=== PATIENT | female | born 1955 | race Caucasian/White ===

== ENCOUNTER 2017-08-04 09:13 | Inpatient (IN) | payer BC, OTHER ==
[~2017-08-04] VITALS: Ht 162.6 cm; Wt 60.9 kg
[2017-08-04 09:40] VITALS: BP 114/54; PULSE 74; TEMP 36.7; O2SAT 97; Ht 162.6 cm; Wt 60.9 kg
[2017-08-04] MEDS ORDERED: TOCI20IN SQ (09:44)
[2017-08-04] MEDS ORDERED: METH2.5T PO (09:46)
[2017-08-04] MEDS ORDERED: LEVO88TA3 PO (09:55)
[2017-08-04] MEDS ORDERED: FOLI1TAB8 PO (09:55)
[2017-08-04] MEDS ORDERED: MULT1CHW39 OR (09:55)
[2017-08-04] MEDS ORDERED: CALC500C70 PO (09:55)
[2017-08-04] MEDS ORDERED: HYDROmorphone INJ 2 MG/ML SYR/VIAL IV PRN (10:00)
[2017-08-04] MEDS ORDERED: HYDR-5688 PO (10:00)
[2017-08-04] MEDS ORDERED: METOCLOPRAMIDE HCL INJ 5 MG/ML 2 ML VIAL IV PRN (10:00)
[2017-08-04] MEDS ORDERED: CEFAZOLIN 1000MG IV PUSH 7.5 ML IV SCH (10:00)
[2017-08-04] MEDS ORDERED: ONDANSETRON INJ 2 MG/ML 2 ML VIAL IV PRN (10:00)
[2017-08-04] MEDS ORDERED: ACETAMINOPHEN 325 MG TAB PO PRN (10:00)
[2017-08-04 10:27] LABS: HEMATOCRIT 38.3 % (37-47); HEMOGLOBIN 13.6 g/dL (12.0-16.0); MEAN CELL VOLUME 91.6 fL (80-100); MEAN CORPUSCULAR HEMOGLOBIN 32.5 pg (25-34); MEAN CORPUSCULAR HGB CONC 35.5 g/dl (32-36); MEAN PLATELET VOLUME 10.1 fL (7.4-10.4); PLATELET COUNT 143 K/uL (130-400); RED CELL DISTRIBUTION WIDTH CV 13.9 % (11.5-14.5); RED CELL DISTRIBUTION WIDTH SD 45.2 fL (36.4-46.3); WHITE BLOOD COUNT 5.62 K/uL (4.8-10.8)
--- NOTE | 2017-08-04 10:39 | DIAGNOSTIC IMAGING REPORT ---
R UPPER EXTREMITY WITHOUT CLINICAL HISTORY: 61 years-old Female presenting with R proximal humerus fracture. TECHNIQUE: Multidetector CT of the right shoulder was performed without the use of intravenous contrast. 3-D volumetric and/or maximum intensity projection (MIP) images were subsequently reconstructed for review. IV contrast: None. A dose lowering technique was used consistent with the principles of ALARA (as low as reasonably achievable). COMPARISON: None. CT DOSE (mGy.cm): The estimated cumulative dose is 719.04 mGy.cm. FINDINGS: Communications Advisor topogram: Right humeral neck fracture. Transversely oriented fracture across the surgical neck of the right humerus with impaction of the distal fracture fragment onto the humeral head. There is suggestion of callus formation along the medial aspect of the distal fracture fragment with incomplete bridging to the bony glenoid (series 202 image 28). This suggests a subacute fracture. A tiny cortical fragments may be present in the fracture plane anteriorly (series 202 image 21). Additionally, prominent triangular fracture fragment arising from the anterior humeral metaphysis with cortical offset at the distal fracture fragment and interposition in the fracture plane anteriorly best seen on sagittal reformats (series 203 image 23). The humeral head remains congruent with the glenoid. There is apex anterior angulation at the fracture site. There is also approximately one half shaft width medial displacement of the distal fracture fragment. IMPRESSION: Impacted, mildly angulated and mildly displaced fracture of the surgical neck of the right humerus. Comminution with interposition of fracture fragments and the fracture plane. The fracture appears subacute given incomplete osseous. bridging. Electronically signed by: Bandar Hester M.D. 08/04/2017 10:38 AM Dictated Date/Time: 08/04/2017 10:32 AM
[2017-08-04 10:46] LABS: CALCIUM 8.5 mg/dl (8.5-10.1); CREATININE 0.89 mg/dl (0.60-1.20); POTASSIUM 3.8 mmol/L (3.5-5.1)
--- NOTE | 2017-08-04 11:55 | Anesthesiology Progress Note ---
Pre-OP Anesthesia Assessment Date of Note Aug 04, 2017. Review patient information reviewed, chart reviewed, labs reviewed, acceptable for surgery Notes 61 yo female admitted with right shoulder injury. Scheduled for right shoulder arthroplasty. PMH significant for rheumatoid arthritis. Pt has had GA in the past without complications. GETA with right interscalene block was recommended , described to pt. She expressed understanding and signed informed consent. Advised pt NPO after midnight except may have meds with sips of water.
[2017-08-04 15:10] VITALS: BP 135/78; PULSE 74; TEMP 36.7; O2SAT 98
--- NOTE | 2017-08-04 15:48 | HISTORY & PHYSICAL EXAMINATION ---
DATE OF ADMISSION: 08/04/2017 HISTORY AND PHYSICAL ADMISSION NOTE CHIEF COMPLAINT: Right proximal humerus fracture. HISTORY OF PRESENT ILLNESS: Makenna is a pleasant 61-year-old female who slipped and fell down a wet grassy hill yesterday sustaining a right proximal humerus fracture. She was placed in an arm sling and she went to [facility] where x-rays confirmed a fracture, then was placed in an arm sling. She was sent home and called my office for treatment. I did get the CD x-rays which showed a displaced fracture and I had her come down to [facility] for direct admit for definitive fixation tomorrow. PAST MEDICAL HISTORY: Significant for rheumatoid arthritis. PAST SURGICAL HISTORY: Significant for cholecystectomy, thyroidectomy and a capsular release of the right shoulder. MEDICATIONS: Include methotrexate 15 mg once a week, Actemra 162 mg subQ every other week, multivitamin, and Synthroid 88 mcg daily. ALLERGIES: None. SOCIAL HISTORY: She denies any tobacco, alcohol or IV drug use. She lives with her up in the [place] area. 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 FAMILY HISTORY: Noncontributory. REVIEW OF SYSTEMS: She complains of right shoulder pain. All other pertinent review of systems is negative. PHYSICAL EXAMINATION: GENERAL: She is awake, alert and orient x3. She is in no apparent distress. She is very pleasant. HEENT: Pupils equal, round, reactive to light. Extraocular motors intact. Oral mucosa is pink and moist. HEART: Regular rate per radial pulse. LUNGS: Mala symmetrically bilaterally with no audible breath sounds. ABDOMEN: Soft, nontender, nondistended. MUSCULOSKELETAL: On physical examination of the right shoulder, her radial, median and ulnar nerves are checked and intact at her wrist. Her axillary nerve was not definitively checked yet. There are no abrasions, lesions, lacerations in her right shoulder. She has significant pain with any motion of her shoulder. IMAGING DATA: A CT scan with 3D reconstructions was reviewed and it showed a displaced surgical neck fracture of the proximal humerus. I saw no intra-articular extension. It is a simple 2-part fracture. IMPRESSION: Two-part right proximal humerus fracture. PLAN: I think this is most amenable to plate and screw fixation. Her and her understand all the risks, benefits, alternatives to procedure and elected to proceed. I currently have her n.p.o. past midnight tonight and will go ahead and fix her shoulder first thing tomorrow morning.
[2017-08-04 23:24] VITALS: BP 138/78; PULSE 53; TEMP 37; O2SAT 95
[2017-08-05] MEDS ORDERED: CEFAZOLIN IV 1,000 MG in DEXTROSE 5% 50ML 50 ML IV SCH (06:00)
[2017-08-05] MEDS ORDERED: FENTANYL CITRATE INJ 50 MCG/1 ML 2 ML VIAL ONE (06:48)
[2017-08-05] MEDS ORDERED: MIDAZOLAM HCL 1 MG/ML 2ML VIAL ONE ×2 (06:48→07:23)
[2017-08-05] MEDS ORDERED: ROPIVACAINE 0.5% 5 MG/ML 30 ML VIAL ONE (07:12)
[2017-08-05] MEDS ORDERED: DEXAMETHASONE SOD INJ 4 MG/ML VIAL ONE ×2 (07:12→09:49)
[2017-08-05] MEDS ORDERED: BUPIVACAINE/EPINEPHRINE 0.5% MPF 1:200,000 30 ML VIAL ONE ×2 (07:14→07:44)
[2017-08-05] MEDS ORDERED: LIDOCAINE HCL 2% 2 ML VIAL (20MG/ML) ONE ×2 (07:17→09:49)
[2017-08-05] MEDS ORDERED: BACITRACIN 50000 UNIT VIAL ONE (07:44)
[2017-08-05] MEDS ORDERED: FENTANYL CITRATE INJ 50 MCG/1 ML 2 ML VIAL IV PRN (08:30)
[2017-08-05] MEDS ORDERED: ONDANSETRON INJ 2 MG/ML 2 ML VIAL IV PRN ×2 (08:30→10:15)
[2017-08-05] MEDS ORDERED: LABETALOL HCL IV 5 MG/ML 20ML IV PRN (08:30)
[2017-08-05] MEDS ORDERED: ATROPINE SULFATE 0.1 MG/ML 5ML SYR IV PRN (08:30)
[2017-08-05] MEDS ORDERED: MEPERIDINE HCL 25 MG/ML CARP IV PRN (08:30)
[2017-08-05] MEDS ORDERED: HYDROmorphone INJ 1 MG/ML SYR IV PRN (08:30)
[2017-08-05] MEDS ORDERED: EpHEDrine SULFATE INJ 50 MG/ML AMP IV PRN (08:30)
[2017-08-05] MEDS ORDERED: ROCURONIUM BROMIDE 10 MG/ML 5 ML VIAL IV ONE (09:49)
[2017-08-05] MEDS ORDERED: GLYCOPYRROLATE INJ 0.2 MG/ML VIAL ONE (09:49)
[2017-08-05] MEDS ORDERED: ONDANSETRON INJ 2 MG/ML 2 ML VIAL ONE (09:49)
[2017-08-05] MEDS ORDERED: NEOSTIGMINE METHYLSULFATE 1 MG/ML 10ML VIAL ONE (09:49)
[2017-08-05] MEDS ORDERED: PROPOFOL IV EMULSION 10 MG/ML 20 ML VIAL IV ONE (09:49)
--- NOTE | 2017-08-05 09:58 | DIAGNOSTIC IMAGING REPORT ---
INTRAOPERATIVE RADIOGRAPHS CLINICAL HISTORY: Open reduction and internal fixation of the right humerus. Fluoroscopy time: 33 seconds. FINDINGS: 2 spot fluoroscopic views of the right proximal humerus are presented. Again seen is an impacted and comminuted fracture of the humeral head and neck. There has been buttress plate fixation of the fracture with numerous cortical lag screws in place. Orthopedic hardware appears intact. IMPRESSION: Intraoperative images from open reduction and internal fixation of a right proximal humeral fracture as above. Electronically signed by: Elías Haile M.D. 08/05/2017 9:57 AM Dictated Date/Time: 08/05/2017 9:56 AM
--- NOTE | 2017-08-05 10:10 | Discharge Instructions ---
Discharge Instructions Date of Service Aug 05, 2017. Admission Reason for Admission: Unstable Rt Paroxysmal Humerous Fracture Discharge Discharge Diagnosis / Problem: ORIF R proximal humerus fracture Discharge Goals Goal(s): Decrease discomfort, Improve function Activity Recommendations Activity Limitations: as noted below . Instructions / Follow-Up Instructions / Follow-Up May shower 5 days from the day of surgery, sling for 6 weeks, f/u with Dr Willams in 2 weeks [phone] Current Hospital Diet Patient's current hospital diet: Regular Diet Discharge Diet Recommended Diet: Regular Diet Procedures Procedures Performed: Open reduction internal fixation of right proximal humerus fracture Pending Studies Studies pending at discharge: no Medical Emergencies . Who to Call and When: Medical Emergencies: If at any time you feel your situation is an emergency, please call 911 immediately. . Non-Emergent Contact Non-Emergency issues call your: Surgeon Call Non-Emergent contact if: wound has increased drainage, wound has increased redness . "Provider Documentation" section prepared by Edinson Willams. . VTE Core Measure Inpt VTE Proph given/why not?: Treatment not indicated
[2017-08-05] MEDS ORDERED: METOCLOPRAMIDE HCL INJ 5 MG/ML 2 ML VIAL IV PRN (10:15)
[2017-08-05] MEDS ORDERED: MAGNESIUM HYDROXIDE SUSP 30 ML UDC PO PRN (10:15)
[2017-08-05] MEDS ORDERED: BISACODYL 10 MG SUPP PR PRN (10:15)
[2017-08-05] MEDS ORDERED: SOD PHOSPHATE/SOD BIPHOSPHATE ENEMA 132 ML BTL PR PRN (10:15)
[2017-08-05] MEDS ORDERED: NALOXONE HCL 0.4 MG/1 ML VIAL/CARP IV PRN (10:15)
[2017-08-05] MEDS ORDERED: OXYCODONE HCL IR 5 MG TAB (IMMEDIATE RELEASE) PO PRN (10:15)
--- NOTE | 2017-08-05 10:25 | Anesthesiology Progress Note ---
Anesthesia Post Op Note Date & Time Aug 05, 2017 at 10:24 Vital Signs Pain Intensity: 0 Vital Signs Past 12 Hours Date Time Temp Pulse Resp B/P (MAP) Pulse Ox O2 Delivery O2 Flow Rate FiO2 08/05/17 10:06 36.6 56 14 119/52 100 Nasal Cannula 2 08/05/17 00:20 Room Air 08/04/17 23:24 37.0 53 12 138/78 (98) 95 Room Air Notes Mental Status: alert / awake / arousable, participated in evaluation Pt Amnestic to Procedure: Yes Nausea / Vomiting: adequately controlled Pain: adequately controlled Airway Patency, RR, SpO2: stable & adequate BP & HR: stable & adequate Hydration State: stable & adequate Anesthetic Complications: no major complications apparent
[2017-08-05] MEDS ORDERED: RXC5 PO (10:26)
[2017-08-05 11:15] VITALS: BP 110/66; PULSE 57; TEMP 36.9; O2SAT 96
[2017-08-05 11:33] VITALS: BP 102/57; PULSE 57; O2SAT 96
[2017-08-05] MEDS ORDERED: POTASSIUM CHLORIDE INJ 10 MEQ in SODIUM CHLORIDE 0.9% 1000ML 1,000 ML IV SCH (11:45)
[2017-08-05] MEDS ORDERED: KETOROLAC TROMETHAMINE 30 MG/ML VIAL IV. SCH (12:00)
[2017-08-05 12:04] VITALS: BP 105/61; PULSE 55; O2SAT 96
--- NOTE | 2017-08-05 13:05 | OPERATIVE REPORT ---
DATE OF OPERATION: 08/05/2017 PREOPERATIVE DIAGNOSIS: Two-part right proximal humerus fracture. POSTOPERATIVE DIAGNOSIS: Same. PROCEDURE: Open reduction internal fixation of right proximal humerus fracture. SURGEON: Dr. Edinson Willams. MEDICAL SERVICE TECHNICIAN: Edinson Baptiste PA-C, whose assistance was necessary for retraction and closure. ANESTHESIA: General with a right interscalene nerve block. COMPLICATIONS: None. CONDITION: Stable to PACU. IMPLANTS USED: I used a Synthes right proximal humeral locking plate. INDICATIONS: Makenna is a pleasant 61-year-old female who slipped on some wet grass couple days ago and sustained a right proximal humerus fracture. It was displaced. She was sent down to [facility] yesterday and CT scan showed a simple 2-part proximal humerus fracture. Her and her elected to undergo open reduction internal fixation. OPERATION AND FINDINGS: On 08/05/2017, she was brought down from her hospital bed to the preoperative holding area, the operative extremity was identified and signed. She was given a preoperative antibiotic and a right interscalene nerve block. She was then taken back to the operating room, laid on table in supine position, put her on general anesthesia. The right shoulder was then prepped and draped in sterile fashion. Time-out was done. The patient's extremity was properly identified. A deltopectoral approach was used. Dissection was taken down through the interval and the fracture was easily exposed. The long head of the biceps tendon was identified and it was tenodesed to the upper border of the pec major and the rotator interval was opened up some and the biceps tendon was removed from its stump. The fracture was reduced using the biceps groove as a landmark. A couple of K wires were placed as provisional fixation. Fluoroscopic imaging was done in orthogonal views and I was happy with the overall alignment. A Synthes 3-hole proximal humeral locking plate was then placed laterally. A screw was placed in a combination hole. Appropriate placement of plate was checked under fluoroscopy. A single compression screw was placed in the combination hole and a locking screw was placed proximally. Fluoroscopic images showed anatomic alignment. Provisional fixation was then removed. The remainder of the proximal screw holes were then filled with locking screws, length of the screw was checked under fluoroscopy. The remainder of the shaft holes were filled with locking screws. The shoulder was then brought through a full range of motion and felt to be stable. Final fluoroscopic images showed anatomic alignment. The wound was then irrigated with 3 liters normal saline solution with bacitracin. The incision was then closed with 2-0 Vicryl and aretha. She was placed in a soft dressing and a regular arm sling. She was then extubated, transferred to a [facility] and taken to the postanesthesia care unit in stable condition. She tolerated the procedure well. I attest to the content of the Intraoperative Record and any orders documented therein. Any exception s are noted below.
[2017-08-05 13:16] VITALS: BP 113/71; PULSE 83; O2SAT 94
[2017-08-05] MEDS ORDERED: ACETAMINOPHEN IV 1,000 MG in EMPTY BAG 0 ML IV SCH (14:00)
[2017-08-05 14:17] VITALS: BP 113/60; PULSE 86; O2SAT 96
[2017-08-05 15:49] VITALS: BP 113/60; PULSE 86; TEMP 36.9; O2SAT 96
[2017-08-05] MEDS ORDERED: CEFAZOLIN IV 1,000 MG in SYRINGE 0 ML IV SCH (16:00)
[2017-08-05] MEDS ORDERED: DOCUSATE SODIUM 100 MG CAP PO SCH (21:00)
[2017-08-05] MEDS ORDERED: SENNA 8.6 MG TAB PO SCH (21:00)
--- NOTE | 2017-08-07 18:28 | DISCHARGE SUMMARY ---
DISCHARGE DIAGNOSIS: Two-part right proximal humerus fracture. PROCEDURE: Open reduction internal fixation of the right proximal humerus on 08/05/[address] Edinson Willams. DISCHARGE INSTRUCTIONS: 1. Oxycodone 5-10 mg every 4 hours as needed for pain. 2. Calcium 600 mg daily. 3. Folvite 3 tabs daily. 4. Synthroid 88 mcg daily. 5. Methotrexate 15 mg every week. 6. Actemra injection subcu every other week. 7. Right arm sling for 6 weeks. 8. Follow up with Dr. Willams in 2 weeks. 9. Call the office of Dr. Willams with any questions or concerns. HOSPITAL COURSE: Makenna is a pleasant 61-year-old female who fell several days ago fracturing her right proximal humerus. She initially went to [facility] and was placed in an arm sling and sent home and told to follow up down at [facility]. I did see pictures of the x-ray and I had her come down as a direct admit on 08/04/2017. Once she was admitted, I got a CAT scan of the shoulder and it showed a 2-part proximal humerus fracture without extension into the humeral head. We elected to undergo open reduction internal fixation. The following morning on 08/05/2017, she was taken down from her hospital room to the preoperative holding area. She then underwent an ORIF of the right proximal humerus without complication. She had a general anesthetic and a right interscalene nerve block. Postoperatively, she was discharged back to the general orthopedic floors. She was doing well postoperatively. She was not having much pain because of the nerve block. She was able to get up and ambulate around. She was subsequently discharged to home with oral pain medications and the above instructions.
== END 2017-08-05 16:25 | disposition home or self-care (01) | DRG 494 ==
LOC: C.MSW 09:13
PROVIDERS: ADMIT Orthopaedic Surgery; ATTEND Orthopaedic Surgery
PROC: 0PSC04Z Reposition Right Humeral Head with Internal Fixation Device, Open Approach (ICD-10-PCS; principal; 2017-08-05 07:30)
DX: S42.221A 2-part displaced fracture of surgical neck of right humerus, initial encounter for closed fracture (principal); M06.9 Rheumatoid arthritis, unspecified; E89.0 Postprocedural hypothyroidism; Z79.899 Other long term (current) drug therapy; Z79.52 Long term (current) use of systemic steroids; W17.81XA Fall down embankment (hill), initial encounter; Y99.8 Other external cause status